=== PATIENT | female | born 1960 | race Caucasian/White ===

== ENCOUNTER 2022-03-05 17:33 | Inpatient (IN) ==
[2022-03-05] MEDS ORDERED: Lactated Ringers 1000 ml BAG 1,000 ML IV ONE (17:35)
[2022-03-05] MEDS ORDERED: methylPREDNISolone 125 mg 2 ML VIAL IV ONE (17:36)
[2022-03-05] MEDS ORDERED: cefTRIAXone 1 gm/50 mL D5W 1 GM/50 ML BAG IV ONE (17:36)
[2022-03-05] MEDS ORDERED: Albuterol/Ipratropium NEB.SOL (2.5/0.5 MG) 3 ML NEB.SOLN INH ONE (17:36)
[2022-03-05 17:58] LABS: PCO2 Arterial 55 mmHg (35-45); PO2 Arterial 203 mmHg (80-100)
[2022-03-05 18:00] LABS: ABS Lymphocytes 0.2 10^3/ul (1.0-4.8); ABS Neutrophils 10.9 10^3/ul (1.5-7.7); Hematocrit 45 % (35-47); Hemoglobin 14.4 g/dL (12.0-16.0); Lymphocyte % 1.9 %; Mean Corpuscular HGB Conc 32 g/dL (31-36); Mean Corpuscular Hemoglobin 25 pg (27-31); Mean Corpuscular Volume 77 fL (80-97); Mean Platelet Volume 7.8 fL (7.4-10.4); Nucleated Red Blood Cells % 0.2; Platelet Count 313 10^3/uL (150-450); Red Blood Count 5.77 10^6 /uL (3.70-4.87); Red Cell Distribution Width 22 % (10-15); White Blood Count 12.2 10^3/uL (3.5-10.8)
[2022-03-05 18:30] LABS: Albumin 3.9 g/dL (3.2-5.2); Albumin/Globulin Ratio 1.3 (1-3); C Reactive Protein 37.45 mg/L (<8.01); Calcium 8.9 mg/dL (8.6-10.3); Globulin 2.9 g/dL (2-4); Potassium 3.9 mmol/L (3.5-5.0); Total Bilirubin 0.7 mg/dL (0.2-1.0); Total Protein 6.8 g/dL (6.4-8.9); eGFR CKD-EPI 38.7 (>60)
[2022-03-05] MEDS ORDERED: cefTRIAXone 1 GM ONETIME (Pharmacy Admix) IVPB ONE (18:30)
[2022-03-05 19:02] LABS: Activated Partial Thrombo Time 23.8 seconds (26.0-38.0); INR 1.11 (0.86-1.15)
[2022-03-05 20:55] LABS: High Sensitivity Troponin 1 Hr 235 pg/mL (<15)
[2022-03-05] MEDS ORDERED: Ondansetron 4 mg VIAL 2 MG/ML 2 ml VIAL IV PRN (21:41)
[2022-03-06] MEDS: Enoxaparin 40 MG/0.4 ML SYR SUBCUT SCH (00:12)
[2022-03-06] MEDS ORDERED: Albuterol HFA INHALER 8 gm MDI INH PRN (02:07)
[2022-03-06] MEDS ORDERED: Furosemide 40 mg/4 ml IV VIAL IV SLOW PU ONE (02:21)
[2022-03-06] MEDS: methylPREDNISolone SOD 40 mg/ml 1 ml VIAL IV SCH ×3 (02:42→18:16)
[2022-03-06 03:31] LABS: Urine Appearance Cloudy; Urine Bilirubin Negative (Negative); Urine Blood Negative (Negative); Urine Color Yellow; Urine Glucose 1+(50 mg/dL) (Negative); Urine Ketones Trace (Negative); Urine Nitrite Negative (Negative); Urine Protein Negative (Negative); Urine Urobilinogen Negative (Negative)
[2022-03-06 05:40] LABS: ABS Lymphocytes 0.2 10^3/ul (1.0-4.8); ABS Monocytes 0.4 10^3/ul (0-0.8); ABS Neutrophils 8.4 10^3/ul (1.5-7.7); Hematocrit 40 % (35-47); Hemoglobin 13.1 g/dL (12.0-16.0); Lymphocyte % 2.7 %; Mean Corpuscular HGB Conc 33 g/dL (31-36); Mean Corpuscular Hemoglobin 25 pg (27-31); Mean Corpuscular Volume 77 fL (80-97); Mean Platelet Volume 8.5 fL (7.4-10.4); Nucleated Red Blood Cells % 0.3; Platelet Count 245 10^3/uL (150-450); Red Blood Count 5.19 10^6 /uL (3.70-4.87); Red Cell Distribution Width 22 % (10-15)
[2022-03-06 06:24] LABS: C Reactive Protein 24.4 mg/L (<8.01); Calcium 8.7 mg/dL (8.6-10.3); HDL Cholesterol 18.2 mg/dL; Potassium 3.4 mmol/L (3.5-5.0); eGFR CKD-EPI 47.1 (>60)
[2022-03-06 07:52] LABS: Magnesium 2.2 mg/dL (1.9-2.7)
[2022-03-06] MEDS: Furosemide 40 mg/4 ml IV VIAL IV SLOW PU SCH (08:16)
[2022-03-06] MEDS ORDERED: Albuterol 2.5mg/3 ml (0.083%) NEB.SOLN INH PRN (08:21)
[2022-03-06] MEDS ORDERED: Perflutren Lipid Microsphere 3 ML VIAL ONE (09:46)
[2022-03-06] MEDS ORDERED: Potassium Chloride LIQUID 20 MEQ/15 ML LIQUID PO ONE (09:49)
[2022-03-06] MEDS: FLUTICAS/UMECLI/VILANT 100-62.5-25 MDI (NF) INH SCH ×2 (10:30→11:29)
[2022-03-06] MEDS: Mometasone/Formoter 200/5 MDI INH SCH ×2 (11:55→20:31)
[2022-03-06] MEDS: SPIRIVA Respimat (tiotropium) 2.5 mcg/inh Inhaler INH SCH (11:56)
[2022-03-06] MEDS ORDERED: cefTRIAXone VIAL 1,000 MG in NS 0.9% 50 ML 50 ML IVPB SCH (18:30)
[2022-03-07] MEDS: Enoxaparin 40 MG/0.4 ML SYR SUBCUT SCH (00:02)
[2022-03-07] MEDS: methylPREDNISolone SOD 40 mg/ml 1 ml VIAL IV SCH ×2 (03:08→10:19)
[2022-03-07] MEDS: Mometasone/Formoter 200/5 MDI INH SCH (08:34)
[2022-03-07] MEDS: SPIRIVA Respimat (tiotropium) 2.5 mcg/inh Inhaler INH SCH (08:35)
[2022-03-07] MEDS: Furosemide 40 mg/4 ml IV VIAL IV SLOW PU SCH (10:19)
[2022-03-07] MEDS ORDERED: Potassium Chlor 20 meq TAB.ER PO ONE (11:34)
[2022-03-07 12:31] VITALS: BP 104/52
== END 2022-03-07 13:15 | disposition home or self-care (01) | DRG 193 ==
LOC: ED 17:33 → SUATTDRO 23:25 → EDHOLD 23:25 → ICU 23:30 → MEDTELE 03-06 14:03
PROVIDERS: ADMIT Internal Medicine; ATTEND Hospitalist